=== PATIENT | female | born 1970 | race Caucasian/White ===

== ENCOUNTER 2025-04-04 08:56 | Emergency (ER) | payer MEDICAID | END 2025-04-04 09:52 | disposition home or self-care (01) | LOC: JP.ED 08:56 → EDSEX 08:56 → JP.ED 09:52 | DX: T16.2XXA Foreign body in left ear, initial encounter (principal); F17.200 Nicotine dependence, unspecified, uncomplicated; Z90.49 Acquired absence of other specified parts of digestive tract; Z90.710 Acquired absence of both cervix and uterus | CPT/HCPCS: 69200; 99282; 99282-25 ==